=== PATIENT | male | born 1950 | race Caucasian/White ===

== ENCOUNTER 2017-11-22 10:48 | Outpatient (CLI) | payer OTHER | END 2017-11-22 20:35 | disposition home or self-care (01) | LOC: SRD 10:48 | PROVIDERS: ATTEND Family Medicine | DX: S80.12XA Contusion of left lower leg, initial encounter (principal); X58.XXXA Exposure to other specified factors, initial encounter; Y93.89 Activity, other specified; Y92.89 Other specified places as the place of occurrence of the external cause; Y99.8 Other external cause status | CPT/HCPCS: 73564; 73590-TC ==

== ENCOUNTER 2018-08-23 12:20 | Outpatient (CLI) | payer OTHER | END 2018-08-23 21:05 | disposition home or self-care (01) | LOC: SUS 12:20 | PROVIDERS: ATTEND Family Medicine | DX: I70.90 Unspecified atherosclerosis (principal) | CPT/HCPCS: 93880 ==